=== PATIENT | male | born 1975 | race Caucasian/White ===

== ENCOUNTER 2016-10-22 16:49 | Emergency (ER) | payer OTHER ==
[2016-10-22 17:00] VITALS: TEMP 98.6; BMI 26.6
[2016-10-22 18:33] VITALS: BP 158/77; PULSE 67
[2016-10-22] MEDS ORDERED: KETOROLAC TROMETHAMINE 10 MG TAB PO ONE (18:41)
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
== END 2016-10-22 19:13 | disposition home or self-care (01) ==
LOC: EDMC 16:49
DX: S16.1XXA Strain of muscle, fascia and tendon at neck level, initial encounter (principal); G44.209 Tension-type headache, unspecified, not intractable; V43.52XA Car driver injured in collision with other type car in traffic accident, initial encounter
CPT/HCPCS: 72050; 99283; J3490